=== PATIENT | female | born 1995 | race Caucasian/White ===

== ENCOUNTER 2022-11-28 11:34 | Emergency (ER) | payer OTHER, SELFPAY ==
--- NOTE | 2022-11-28 11:38 | ED.GENADULT ---
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 pain is cramping and continuous. No exacerbating or relieving factors -- vaginal bleeding. LMP October 30 -- Nausea with 2 episodes of vomiting. No diarrhea. no fever or chills. patient has never been before. No history of abdominal surgeries Onset (ago): hour(s) ( Started early today) Location: abdomen Radiation: non-radiation Severity: severe Quality: aching Pain Consistency: constant Relieving factors: none Exacerbating factors: none Associated symptoms: denies other symptoms Treatments prior to arrival: none Related Data Allergies Allergy/AdvReac Type Severity Reaction Status Date / Time Penicillins Allergy Difficulty Verified 07/25/21 08:48 Breathing Review of Systems Review of Systems: All systems reviewed & are unremarkable except as noted in HPI and below Constitutional: Constitutional: Reports as per HPI and Reports no additional constitutional complaints Eyes: Eyes: Reports as per HPI and Reports no additional eye complaints ENT: Reports system reviewed and no additional complaints, except as documented and Reports as per HPI Cardiovascular: Cardiovascular: Reports as per HPI and Reports no additional cardiovascular complaints Respiratory: Respiratory: Reports as per HPI and Reports no additional respiratory complaints Gastrointestinal: Gastrointestinal: Reports as per HPI, Reports no additional gastrointestinal complaints, Reports abdominal pain, Reports nausea and Reports vomiting Genitourinary: Genitourinary: Reports no additional female genitourinary complaints Musculoskeletal: Musculoskeletal: Reports no additional musculoskeletal complaints and Reports as per HPI Integumentary/Breasts: Skin/Breast: Reports system reviewed and no additional complaints, except as docu and Reports as per HPI Neurologic: Reports system reviewed and no additional complaints, except as documented and Reports as per HPI Psychiatric: Psychiatric: Reports no additional psychiatric complaints and Reports as per HPI Endocrine: Endocrine: Reports no additional endocrine complaints and Reports as per HPI Hematologic/Lymphatic: Hematologic/Lymphatic: Reports no additional hematologic/lymphatic complaints and Reports as per HPI Allergic/Immunologic: Allergic/Immunologic: Reports no additional allergic/immunologic complaints and Reports as per HPI Exam Const: General: healthy appearing Nutritional Appearance: well nourished Orientation/consciousness: patient oriented x3 Limitations: no limitations HENMT: Head: normal to inspection Ears: external ears normal Face/Nose/Sinus: Normal external nose present Face and sinus: normal facial exam Mouth: Yes Normal oral and palatal mucosa present Throat: posterior oropharynx normal Eyes: Conjunctivae: conjunctivae normal Pupils: Equal, round and reactive pupils present ( left pupil is dilated. Decreased vision) EOM: EOMs intact bilaterally Direct Ophthalmoscopy: no photophobia Neck: Neck: normal visual inspection, no lymphadenopathy and no meningeal signs Chest: Chest palpation & inspection: normal inspection of the chest Resp: Effort & Inspection: normal respiratory effort Auscultation: clear to auscultation bilaterally Cardio: Rate: regular rate Rhythm: regular rhythm GI: GI Palp: Yes Soft to palpation Auscultation: normal bowel sounds Other: no tenderness/ rigidity / rebound. : General: Yes no CVA tenderness Other: Patient is currently on herperiod Back/Spine/Pelvis: Back: no CVA tenderness Skin: General skin exam: normal color Rashes: no rashes Woun
[2022-11-28 12:14] VITALS: BP 133/95; PULSE 92; RESP 20; TEMP 37; O2SAT 99
[2022-11-28 12:46] LABS: Basophils Absolute Auto 0.02 K/mm3 (0.00-0.10); Basophils Percent Auto 0.2 % (0.0-1.0); Eosinophils Absolute Auto 0.06 K/mm3 (0.02-0.50); Eosinophils Percent Auto 0.7 % (1.0-6.0); Hematocrit 40.4 % (35.0-49.0); Hemoglobin 13.4 g/dL (12.0-15.0); Immature Granulocyte Absolute 0.05 K/mm3 (0.00-0.00); Immature Granulocyte Percent A 0.6 % (0.0-0.0); Lymphocytes Absolute Auto 0.89 K/mm3 (1.10-4.50); Mean Corpuscular HGB Conc 33.2 g/dL (32.0-36.0); Mean Corpuscular Volume 90.6 fL (78.0-102.0); Mean Platelet Volume 10.1 fl (9.2-11.8); Monocytes Absolute Auto 0.36 K/mm3 (0.10-0.90); Neutrophils Absolute Auto 7.5 K/mm3 (1.7-7.2); Neutrophils Percent Auto 84.5 % (50.0-70.0); Platelet Count Result 216 K/mm3 (150-420); Red Blood Count 4.46 M/mm3 (4.20-5.40); Red Cell Distribution Width 11.7 % (11.6-14.4); White Blood Count 8.9 K/mm3 (4.8-10.8)
[2022-11-28 12:57] LABS: Alanine Aminotransferase 18 U/L (14-59); Albumin Level 4.1 g/dL (3.4-5.0); Alkaline Phosphatase 65 U/L (46-116); Anion Gap 9 mmol/L (8-16); Aspartate Amino Transferase 15 U/L (15-37); Bilirubin,Total 0.6 mg/dL (0.00-1.00); Blood Urea Nitrogen 11 mg/dL (7-18); Calcium 8.5 mg/dL (8.5-10.1); Carbon Dioxide 26 mmol/L (21-32); Chloride 105 mmol/L (98-108); Estimated CRCL calculation 91 ml/min; Estimated Glomerular Filt Rate > 60; Glucose 103 mg/dL (70-99); Lipase 21 U/L (16-77); Osmolality Calculated 289 mOsm/kg (285-295); Potassium 3.6 mmol/L (3.5-5.1); Sodium 140 mmol/L (136-145); Total Protein 7.8 g/dL (6.4-8.2)
[2022-11-28 13:01] LABS: SPREG INTERNAL CONTROL Positive; Serum Qual hCG Negative
[2022-11-28 13:02] LABS: Lactic Acid Reflex 0.9 mmol/L (0.4-2.0)
[2022-11-28 13:22] LABS: Appearance Urine Clear (Clear); Bilirubin Urine Negative (Negative); Blood Urine 3+ (Negative); Color Urine Yellow (Yellow); Glucose Urine UA Negative (Negative); Ketones Urine Negative (Negative); Leukocyte Esterase Ur Negative LEU/UL (Negative); Nitrate Urine Negative (Negative); Protein Urine Negative (Negative); Specific Grav Ur >= 1.030 (1.010-1.020); Urobilinogen Urine 0.2 mg/dL (0.2-1.0)
[2022-11-28 13:26] LABS: Add Urine Microscopic? YES; RBC Urine 21-50 /hpf (0-2); Squamous Epithelial Cell Urine Rare /hpf (Few); WBC Urine None seen /hpf (0-3)
[2022-11-28 13:27] LABS: Bacteria Urine 1+ /hpf; Mucus Urine Few /lpf
[2022-11-28 13:41] VITALS: BP 134/80; PULSE 80; RESP 20; TEMP 36.1; O2SAT 99
== END 2022-11-28 13:41 | disposition home or self-care (01) ==
PROVIDERS: Emergency Provider Internal Medicine Critical Care Medicine; PCP Family Medicine
DX: R10.31 Right lower quadrant pain (principal)
CPT/HCPCS: 36415; 80053; 81001; 83605; 83690; 84703; 85025; 99283

== ENCOUNTER 2024-07-19 09:38 | Outpatient (RCR) | payer OTHER, SELFPAY ==
[2024-07-20] MEDS: RHO(D) IMMUNE GLOBULIN 300 MCG/2 ML SYRINGE IM (11:24)
== END 2024-10-17 23:59 | disposition home or self-care (01) ==
LOC: ANHLAB 09:38
PROVIDERS: PCP Family Medicine; Visit Provider Obstetrics & Gynecology
DX: Z29.13 Encounter for prophylactic Rho(D) immune globulin (principal); O36.0190 Maternal care for anti-D [Rh] antibodies, unspecified trimester, not applicable or unspecified; Z3A.00 Weeks of gestation of pregnancy not specified
CPT/HCPCS: 36415; 85461; 86850; 86900; 86901; 90384; 96372; J2790

== ENCOUNTER 2024-09-04 11:20 | Observation (INO) | payer OTHER, SELFPAY ==
[2024-09-04] VITALS (7 sets, daily range): BP systolic 107–119; BP diastolic 61–75; PULSE 106–118; BMI 27.8
--- NOTE | 2024-09-04 11:46 | OBADM ---
This patient, Bry Stewart, admitted to the OB room OB Post 112 for observation. Patient/family oriented to hospital policies and general routines including ID bracelet, bed and alarms, visiting hours, pain management, procedures, bathroom and other care routines, personal items, smoking policy, room service/diet, and visiting hours. Patient/Family are encouraged to report perceived risks to care and to ask questions if they do not understand what they are told or what they should do.
[2024-09-04 12:27] LABS: Add Urine Microscopic? YES; Appearance Urine Cloudy (Clear); Bacteria Urine 4+ /hpf; Bilirubin Urine Negative (Negative); Blood Urine Negative (Negative); Color Urine Yellow (Yellow); Glucose Urine UA Trace mg/dL (Negative); Ketones Urine Negative (Negative); Leukocyte Esterase Ur Trace LEU/UL (Negative); Need Manual Microscopic Reviewed; Nitrate Urine Negative (Negative); Non Pathogenic Casts 0-2; Protein Urine Negative (Negative); Specific Grav Ur 1.012 (1.001-1.035); Squamous Epithelial Cell Urine Few /hpf (Few); Urobilinogen Urine 0.2 mg/dL (<2.0); WBC Urine 21-50 /hpf (0-3)
--- OUTSIDE RECORDS SUMMARY | 2024-09-04 13:21 | XMS_ITS | Data Portability ---
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 Patient will come back in a year unless there are new symptoms. [email or web address] Not available 12/10/2022 11:35:56 Plan of Treatment Reminders Order Date Submit Date Provider Last Modified By Organization Details Last Modified Time Details Appointments None record ed. Lab None record ed. Referral None record ed. Procedures None record ed. Surgeries None record ed. Imaging None record ed. Medication Orders None record ed. Patient TargetsNo targets recorded. Patient InstructionsNo instructions recorded. Reason for Referral None Reported. Results Created Date Observation Date Name Description Value Unit Range Abnormal Flag Note LastModifiedBy Organization Detail LastModifiedTime 12/11/19 23 12/10/2022 IMAGE GUIDE D PAP, REFLE X HPV IF ASCUS ONLY image guided Pap, reflex HPV ASCUS only SEE RESULT S BELOW CASE REPOR T: Cytol ogy Gynec ologi maurice Repor t Case: [id number] Autho francine g Provi lopez: Gianna Aaron, TERRELL Colle cted: 12/10 1206 Order ing Locat ion: [place] Patho log[facility] Recei nikolay: 12/11 0750 First Scree n: DeLuc a, Leidy, CT Speci men: Scree latha Pap - Image d, Cervi x STATE MENT OF ADEQU ACY: Satis facto ry for evalu ation Trans forma tion zone compo nent prese nt FINAL DIAGN OSIS: Negat raina for Intra epith elial Lesio n or [place] sheets (NIL) . Elect ya jesus d by Leidy Reed CT on 023 at 1:13 PM ----- ----- ----- ----- ----- ----- ----- ----- ----- ----- ----- ----- ----- ----- ----- ----- ----- ---- COMME NT: This speci men was revie wed by a Cytot echno logis t and/o r Patho logis t (as indic ated in this repor t) after evalu ation using the Thinp rep Imagi ng Syste m. CLINI MAURICE INFOR MATIO N: Menst rual Statu s: LMP (if appli cable ): Clini maurice Histo ry/Pr eviou s Pap: Type of Neopl joey (if appli cable ): Signi fican t Clini maurice Findi ngs: Other Histo ry: Hormo randy (if appli cable ): PAP EDUCA IRAIS L NOTE: The Pap Test is a scree latha test with an inher ent false negat raina rate. Liqui d-bas ed sampl ing may decre ase, but will not elimi lai, false negat raina resul ts. A negat raina resul t does not precl ude the prese nce and/o r devel opmen t of disea se, since the prese nce of abnor mal cells in the sampl e depen ds on the locat ion of the lesio n and sampl ing techn ique. Lyndsay nued regul ar scree latha is the best metho d of cance r preve ntion . If repor tom cytol ogic findi ng do not corre late with physi maurice and/o r histo rical findi ngs, furth er inves tigat ion is recom patricio d, as rajni sequeira nted. Not Available [facility] (Lab) [address], [place], [address], 12/15/2022 14:17:50 12/11/19 23 12/10/2022 CT/GC (LIZY) , THINP REP VIAL chlamydia trachomatis, PCR Negati ve negati ve Not Available [facility] (Lab) [address], [place], [address], 12/15/2022 14:17:51 12/11/19 23 12/10/2022 CT/GC (LIZY) , THINP REP VIAL neisseria gonorrhoeae, PCR Negati ve negati ve Not Available [facility] (Lab) [address], [place], [address], 12/15/2022 14:17:51 12/11/19 23 12/10/2022 TRICH OMONA S VAGIN KURTIS (RRNA ) trichomonas vaginalis ribosomal RNA (rrna) Negati ve negati ve Not Available [facility] (Lab) [address], [place], [address], 12/15/2022 14:17:51 Result Notes None recorded. Procedures Surgical History Date Name Laterality Status Provider Name and Address Organization Details Recorded Time Date of Last Pap Smear completed Laura Rick [facility] 12/10/2022 11:36:33 Other completed Laurafadi Rick [facility] 12/10/2022 11:36:43 Imaging Results None recorded. Procedure Notes None recorded. Medical Equipment None Reported. Allergies Allergen ID Allergen Name Allergen Category Reaction Reaction Severity Criticality Documentation Date Start Date Code Code System Note Provider Name and Address Organization Details Recorded Time Penicilli n Not available anaphylax is severe Not available 12/10/2022 58585 [facility]Norm [facility] 11:36:23 Medications Name Sig Start Date Stop Date Status Note LastModified by Organization Details LastModified Time clindamycin HCl 300 mg capsule 2022 completed Not Available Not Available Not Available hydrocodone 5 mg-acetaminop hen 325 mg tablet 2022 completed Not Available Not Available Not Available Durezol 0.05 % eye drops active Not Available Not Available Not Available Vitals Date Recorded Body height Body mass index (BMI) Body weight Systolic blood pressure Diastolic blood pressure Provider Name and Address Organization Details Last Updated DateTime 12/10/2022 160.02 cm 21.6 kg/m2 68731.27 g 119 mm[Hg] 75 mm[Hg] Laura Rikc [facility] 11:36:19 Social History Question Answer Notes LastModified by Organizat ion Details LastModified Time Tobacco Smoking Status Never Smoker Laura Rick [facility], [facility] 12/10/2022 11:37:45 What Is Your Level Of Alcohol Consumption? Occasional Information not available 12/10/2022 Are You Blind Or Do You Have Difficulty Seeing? Yes Information not available 12/10/2022 What Is Your Level Of Caffeine Consumption? Moderate Information not available 12/10/2022 In The 14 Days Before Symptom Onset, Have You Had Close Contact With A Laboratory-confir med COVID-19 While That Case Was Ill? No Information not available 12/10/2022 In The 14 Days Before Symptom Onset, Have You Had Close Contact With A Person Who Is Under Investigation For COVID-19 While That Person Was Ill? No Information not available 12/10/2022 Have You Been To An Area Known To Be High Risk For COVID-19? No Information not available 12/10/2022 Are You Deaf Or Do You Have Serious Difficulty Hearing? No Information not available 12/10/2022 What Type Of Diet Are You Following? REGULAR Information not available 12/10/2022 What Is The Highest Grade Or Level Of School You Have Completed Or The Highest Degree You Have Received? 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 Yes Information not available 12/10/2022 Do You Use Protection During Sex? No Information not available 12/10/2022 Do You Use Your Seat Belt Or Car Seat Routinely? Yes Information not available 12/10/2022 Do You Have Smoke And Carbon Monoxide Detectors In Your Home? Yes Information not available 12/10/2022 How Much Tobacco Do You Smoke? No Information not available 12/10/2022 Do You Feel Stressed (tense, Restless, Nervous, Or Anxious, Or Unable To Sleep At Night)? [id number] Information not available 12/10/2022 Do You Use Any Illicit Or Recreational Drugs? No Information not available 12/10/2022 Do You Use Sunscreen Routinely? Yes Information not available 12/10/2022 Have You Used IV Drugs? No Information not available 12/10/2022 Sex: Unknown Functional Status Question Answer Note LastModified by Organizat ion Details LastModified Time Do you have difficulty walking or climbing stairs? No Information not available 12/10/2022 Are you able to walk? YESWOREST Information not available 12/10/2022 Are you able to care for yourself? Yes Information not available 12/10/2022 Do you have difficulty dressing or bathing? No Information not available 12/10/2022 What is your exercise level? Moderate Information not available 12/10/2022 Mental Status None recorded. Family History Relationship Description Onset Age of this Age Resolved Age Notes LastModified by Organization Details LastModified Time Paternal Grandmother Hypertensive disorder [email or web address] Not available 07/2022 11:36:26 Maternal Grandmother Hypertensive disorder vschroedter Not available 07/2022 11:36:26 Maternal Grandmother High risk vschroedter Not available 07/2022 11:36:26 Maternal Grandmother Diabetes mellitus vschroedter Not available 07/2022 11:36:26 Maternal Grandfather Cerebrovascu lar accident vschroedter Not available 0 12/10/2022 11:36:26 Maternal Grandfather Hypertensive disorder vschroedter Not available 07/2022 11:36:26 Maternal Grandfather Diabetes mellitus vschroedter Not available 07/2022 11:36:26 Maternal Grandfather Kidney disease vschroedter Not available 07/2022 11:36:26 Father Myocardial infarction vschroedter Not available 07/2022 11:36:26 Father Substance abuse vschroedter Not available 07/2022 11:36:26 Medical History Condition Response Allergies (Food, seasonal, environmental ) N Other N Breast Cancer N Drug/Latex Allergies/Reactions N Blood Transfusion N Dermatologic Disorders N Lung Disease N Defects or Inherited Disease N Breast Problem N Gestational Diabetes N Hematologic disorders N Anesthesia Complications N History of STI N Deep Vein Thrombosis N Polycystic ovary syndrome N Anxiety Disorder N Autoimmune disease N Arthritis N Infertility N Polyps N Acid Reflux (GERD) N History of abnormal pap N Cancer N Stroke N Varicosities N Neurologic/Epilepsy N Endometriosis N High Cholesterol N Headaches N Fibromyalgia N Kidney Disease N Heart Problems N Kidney or Bladder Problems N Thyroid Problems N GI Problems N Eating Disorder N Anemia N Art (IVF or FET) N Psychiatric Illness N Ovarian Cancer N Diabetes N Pulmonary (TB, Asthma) N Hepatitis/Liver Disease N No Past Medical History N Eczema N Urinary Tract Infection N Abuse/Domestic Violence N Asthma N Trauma/Violence N Depression/ depression N Heart Disease N Pre-Eclampsia N Hypertension N Osteoporosis N Thrombophilias N Gynecological History Statement/Question Response Abnormal Pap N Flow Heavy Date of LMP 11/25/2022 On BCP's at Conception? N N Was last menstrual period normal N STIs/STDs Y HPV Vaccine N Duration of Flow (days) 6 Current Control Method None Are cycles usually normal Y Frequency of Cycle (Q days) 7 Sexually Active? Y Menses Monthly Y Age of first menstrual cycle 13 Date of Last Pap Smear 11/25/2016 Sexual Problems? N LMP Approximate N Obstetrics History GPAL:G 0 P 0 0 0 0 Past Encounters Encounter ID Performer Location Encounter Start Date Encounter Closed Date Diagnosis/Indication Diagnosis SNOMED-CT Code Diagnosis ICD10 Code Diagnosis Note [id number] ELBA Reyes [place] [address] [address] 12/10/2022 11:25:20 12/10/2022 12:46:42 Gynecologic examination 09315907 Z01.419 Take Calcium with Vitamin D 1200mg daily if not receiving in daily diet. It is strongly advised to have an annual flu shot and up can obtain at most pharmacies . If you have not had a TDap shot in the last 10 years you should obtain one as well. Discussed with patient & provided with informatio n regarding Gardisil vaccine to prevent the 4 strains for HPV that cause cervical cancer if under age 26. Encourage safe sexual practices, to use condoms and limit partners if not already in a monogamous relationsh ip. Do monthly self breast exams. Have mammogram yearly or every other year depending on family history. BRCA testing is now available for patients with strong genetic history of female cancer. If interested contact the office. Engage in daily exercise of low impact aerobic exercise 45-60 minutes 4-5 times weekly. Avoid tobacco and illicit drugs as well as using moderation with alcohol intake less than 1-2 8 oz beverages daily. This lifestyle behavior pattern will lead to less health conditions and longer life span. If BMI greater than 25 weight watchers or dietary consult advised. Patient received above instructio ns, and questions have been answered. If you have any questions please call or respond to this email. Patient was made aware of the patient portal and may obtain a paper copy of today's plan if desired. Tan martell TTC after [place] vacation in April. Discussed timed IC, encouraged daily PNVno hx of abnormal papslast pap 2017 - normalpap done todaySTI testing added to papBlood STI panel declinedFa m hx discussedR TC in 1 year or sooner if needed Health Concerns Section Related Observation LastModified by Organization Detai ls LastModified Time None Recorded Concern Status LastModified by Organization Details LastModified Time None Recorded Advance Directives Directive None Recorded Payers Encounter Date Sequence Insurance Name Policy Number Policy Paez Covered Member ID Paez Member ID Guarantor Name 12/10/2022 1 [employer] [id number] Bry Stewart [id number] Bry Stewart Notes Date Note Type Note Provider Name and Address Organization Details Recorded Time 12/10/2022 text/html Annual GYNReport ed bypatient.Menstrua l cycle:Normal menses Urinary symptoms:No hematuria; No incontinence Vulva:No genital lesion Vagina:Normal vaginal discharge Breast:No breast pain; No breast lump; No nipple discharge Current Contraception:Cond oms Sexual complaints:No sexual complaints; No pain during intercourse; Normal libido Menopausal Symptoms:No menopausal symptoms; Normal vaginal lubrication Psychological symptoms:No depression; No anxiety; No PMDD Preventive measures:Encourage self breast examination; Encourage regular exercise; Encourage no tobacco use; Encourage regular mammograms starting age 40 ELBA Reyes [address], [place], [address], [facility] 12/10/2022 12:38:55 OBGyn Episode No OBEpisode recorded.
--- NOTE | 2024-09-05 07:57 | PM.OBTRLD ---
OB - Triage/Final Diagnosis Visit Information Date of evaluation: 09/04/24 Comments/Additional reasons for admission: I have assessed the risk for this patient, Bry Stewart, and determined that she would benefit from observation care. Evaluation Laboratory results: Laboratory Tests 09/04/24 12:04 Urine Color Yellow Urine Appearance Cloudy H Urine pH 7.0 Ur Specific [place] 1.012 Urine Protein Negative Urine Glucose (UA) Trace H Urine Ketones Negative Ur Blood (Man) Negative Urine Nitrate Negative Urine Bilirubin Negative Urine Urobilinogen 0.2 Ur Leukocyte Esterase Trace H Add Ur Microanalysis Reviewed Urine RBC 3-5 H Urine WBC 21-50 H Ur Squamous Epith Cells Few Urine Bacteria 4+ H Urine Casts 0-2 Vital signs: Vital Signs - 24 hr 09/04/24 11:39 09/04/24 11:45 09/04/24 11:46 Pulse Rate 118 H 108 H Blood Pressure 119/75 119/71 Oxygen Delivery Room Air 09/04/24 12:01 09/04/24 12:15 09/04/24 12:31 Pulse Rate 108 H 113 H 108 H Blood Pressure 113/69 114/65 108/68 Oxygen Delivery 09/04/24 12:46 09/04/24 13:00 Pulse Rate 106 H 107 H Blood Pressure 107/61 111/66 Oxygen Delivery
== END 2024-09-04 14:30 | disposition home or self-care (01) ==
LOC: ANHOBPP 11:25
PROVIDERS: Admitting Provider Obstetrics & Gynecology; PCP Family Medicine; Visit Provider Obstetrics & Gynecology
DX: O26.893 Other specified pregnancy related conditions, third trimester (principal); R10.9 Unspecified abdominal pain; Z3A.34 34 weeks gestation of pregnancy
CPT/HCPCS: 81001; 87086; G0378; G0379

== ENCOUNTER 2024-10-11 01:50 | Inpatient (IN) | payer OTHER, SELFPAY ==
[2024-10-11] VITALS (270 sets, daily range): BP systolic 84–137; BP diastolic 36–80; PULSE 31–147; RESP 16; TEMP 36.4–38.3; O2SAT 64–100; BMI 30.6
--- OUTSIDE RECORDS SUMMARY | 2024-10-11 01:59 | XMS_ITS | Data Portability ---
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 Not Available [facility] (Lab) [address], [place], [address], 12/15/2022 14:17:50 12/11/19 23 12/10/2022 CT/GC (LIZY) , THINP REP VIAL chlamydia trachomatis, PCR Negati ve negati ve Not Available [facility] (Lab) [address] [facility], [place], [address], 12/15/2022 14:17:51 12/11/19 23 12/10/2022 CT/GC (LIZY) , THINP REP VIAL neisseria gonorrhoeae, PCR Negati ve negati ve Not Available [facility] (Lab) [address], [place], [address], 12/15/2022 14:17:51 12/11/19 23 12/10/2022 TRICH OMONA S VAGIN KURTIS (RRNA ) trichomonas vaginalis ribosomal RNA (rrna) Negati ve negati ve Not Available [facility] (Lab) [address], [place], [address], 12/15/2022 14:17:51 Result Notes None recorded. Procedures Surgical History Date Name Laterality Status Provider Name and Address Organization Details Recorded Time Date of Last Pap Smear completed Laura Rick [facility] 12/10/2022 11:36:33 Other completed Laurafadi Rick [facility] 12/10/2022 11:36:43 Imaging Results None recorded. Procedure Notes None recorded. Medical Equipment None Reported. Allergies Allergen ID Allergen Name Allergen Category Reaction Reaction Severity Criticality Documentation Date Start Date Code Code System Note Provider Name and Address Organization Details Recorded Time Penicilli n Not available anaphylax is severe Not available 12/10/2022 33832 RxNorm [facility] 11:36:23 Medications Name Sig Start [...] Updated DateTime 12/10/2022 160.02 cm 21.6 kg/m2 74309.27 g 119 mm[Hg] 75 mm[Hg] Laura Rick [facility] 11:36:19 Social History Question Answer Notes LastModified by Organizat ion Details LastModified Time Tobacco Smoking Status Never Smoker Laura Rick [facility], [facility] 12/10/2022 11:37:45 What Is Your Level [...] Or The Highest Degree You Have Received? [id number] Information not available 12/10/2022 What Is Your [...] Anxious, Or Unable To Sleep At Night)? [id number] Information not available 12/10/2022 Do You Use [...] available 07/2022 11:36:26 Medical History Condition Response Other N Blood Transfusion N Dermatologic Disorders N Gestational Diabetes N Anxiety Disorder N Autoimmune disease N Arthritis N Polyps N Infertility N Acid Reflux (GERD) N Cancer N Varicosities N Stroke N Neurologic/Epilepsy N Fibromyalgia N Headaches N Kidney Disease N Heart Problems N Kidney or Bladder Problems N Eating Disorder N Art (IVF or FET) N Hepatitis/Liver Disease N No Past Medical History N Urinary Tract Infection N Asthma N Trauma/Violence N Thrombophilias N Allergies (Food, seasonal, environmental ) N Breast Cancer N Drug/Latex Allergies/Reactions N Lung Disease N Defects or Inherited Disease N Breast Problem N Hematologic disorders N Anesthesia Complications N History of STI N Deep Vein Thrombosis N Polycystic ovary syndrome N History of abnormal pap N Endometriosis N High Cholesterol N Thyroid Problems N GI Problems N Anemia N Psychiatric Illness N Ovarian Cancer N Diabetes N Pulmonary (TB, Asthma) N Eczema N Abuse/Domestic Violence N Depression/ depression N Heart Disease N Pre-Eclampsia N Hypertension N Osteoporosis N Gynecological History Statement/Question Response Abnormal Pap [...] SNOMED-CT Code Diagnosis ICD10 Code Diagnosis Note [id number] ELBA Reyes [place] [address] [address] 12/10/2022 11:25:20 12/10/2022 12:46:42 Gynecologic examination 17910401 Z01.419 Take Calcium with Vitamin D 1200mg [...] plan if desired. Tan martell TTC after [place] vacation in April. Discussed timed IC, encouraged [...] Member ID Guarantor Name 12/10/2022 1 UMR [id number] Bry Stewart [id number] Bry Stewart Notes Date Note Type Note [...] age 40 ELBA Reyes [address], [place], [address], [facility] 12/10/2022 12:38:55 OBGyn Episode No OBEpisode recorded.
--- NOTE | 2024-10-11 02:02 | LDADM ---
This patient, Bry Stewart, was admitted to Labor/Delivery/Recovery 106 on 10/11/24 at 01:50. Plans for labor, pain management and were discussed with patient. Patient/family oriented to hospital policies and general routines including ID bracelet, bed and alarms, visiting hours, pain management, procedures, bathroom and other care routines, personal items, smoking policy, room service/diet and guest tray routines, infant security routines, and visiting hours. Patient/Family are encouraged to report perceived risks to care and to ask questions if they do not understand what they are told or what they should do. See OBIX for further documentation.
[2024-10-11 02:17] LABS: Basophils Absolute Auto 0.1 K/mm3 (0.0-0.1); Basophils Percent Auto 0.4 % (0.2-1.2); Eosinophils Absolute Auto 0.2 K/mm3 (0-0.3); Eosinophils Percent Auto 1.2 % (0-4.4); Hematocrit 33.2 % (37.0-47.0); Immature Granulocyte Absolute 0.12 K/mm3 (0.00-0.031); Lymphocytes Absolute Auto 2.48 K/mm3 (0.9-3.2); Lymphocytes Percent Auto 19.7 % (18.3-44.2); Mean Corpuscular HGB Conc 33.1 g/dl (32-36); Mean Corpuscular Hemoglobin 27.8 pg (26-34); Mean Corpuscular Volume 83.8 fl (80-100); Mean Platelet Volume 10.2 fl (7.4-10.4); Monocytes Absolute Auto 1.1 K/mm3 (0.1-0.6); Monocytes Percent Auto 8.4 % (2.6-8.5); Neutrophils Absolute Auto 8.7 K/mm3 (1.3-6.7); Neutrophils Percent Auto 69.3 % (45.5-73.1); Platelet Count Result 260 k/mm3 (150-375); Red Blood Count 3.96 M/mm3 (4.2-5.4); Red Cell Distribution Width 13.4 % (11.5-14.5); White Blood Count 12.6 K/mm3 (4.5-10.0)
[2024-10-11 03:19] LABS: HIV 1/2 Ab P24 Ag Result Negative (Negative)
[2024-10-11 03:24] LABS: Syphilis IgG/IgM Antibody Negative (Negative)
[2024-10-11] MEDS: OXYTOCIN 30 UNITS/NS 500 ML 30 UNITS/500 ML BAG IV CONT (03:37)
[2024-10-11] MEDS: LACTATED RINGERS 1,000 ML 125 ML IV CONT ×4 (03:38→18:23)
--- NOTE | 2024-10-11 05:49 | P.PNAN_ITS ---
Anes - Eval Pre Procedure Procedure: labor pain management Date/Time: 10/11/24 05:49 Surgeon: Ayse Hinojosa Preop Diagnosis: pain during labor Pre Op Diagnosis: Leaking Patient Data Age: 29 Gender: F Height: 1.57 m Weight: 76 kg Last Vital Signs Pulse 87 10/11/24 05:45 BP 106/65 10/11/24 05:45 Pulse Ox 92 10/11/24 05:48 O2 Del Method Room Air 10/11/24 02:02 Allergies Allergy/AdvReac Type Severity Reaction Status Date / Time Penicillins Allergy Difficulty Verified 10/11/24 02:54 Breathing Home Medications ?Medication ?Instructions ?Recorded ?Confirmed ?Type escitalopram oxalate 10 mg tablet 10 mg PO DAILY 09/30/24 09/30/24 History (Lexapro) vit no.95-ferrous 1 tablet PO DAILY 09/30/24 09/30/24 History fumarate 28 mg-folic acid 800 mcg tablet ( Formula) Laboratory Tests 10/11/24 02:09 WBC 12.6 H K/mm3 (4.5-10.0) RBC 3.96 L M/mm3 (4.2-5.4) Hgb 11.0 L g/dL (12.0-15.0) Hct 33.2 L % (37.0-47.0) MCV 83.8 fl (80-100) MCH 27.8 pg (26-34) MCHC 33.1 g/dl (32-36) RDW 13.4 % (11.5-14.5) Plt Count 260 k/mm3 (150-375) MPV 10.2 fl (7.4-10.4) Immature Gran % (Auto) 1.0 H % (0-0.5) Neut % (Auto) 69.3 % (45.5-73.1) Lymph % (Auto) 19.7 % (18.3-44.2) [place] % (Auto) 8.4 % (2.6-8.5) Eos % (Auto) 1.2 % (0-4.4) Baso % (Auto) 0.4 % (0.2-1.2) Lymph # (Auto) 2.48 K/mm3 (0.9-3.2) [place] # (Auto) 1.1 H K/mm3 (0.1-0.6) Eos # (Auto) 0.2 K/mm3 (0-0.3) Baso # (Auto) 0.1 K/mm3 (0.0-0.1) Abs Immat Gran (auto) 0.12 H K/mm3 (0.00-0.031) Absolute Neuts (auto) 8.7 H K/mm3 (1.3-6.7) Absolute Nucleated RBC 0.000 K/mm3 (0.0-0.012) Nucleated RBC % 0.0 % (0.0-0.2) Syphilis IgG/IgM Ab Negative (Negative) HIV 1&2 Ab/P24 Ag 4thGn Negative (Negative) Blood Type O Negative Antibody Screen Negative Patient hx anesthesia problems: none Family hx anesthesia problems: none Results Review: All pre-operative results and documents have been reviewed as part of the pre- operative evaluation. [facility] Social History Social History Smoking status: Never smoker Substance use: never Do You Feel Safe in your Home?: Yes Lack of Transportation: No Lack of Food: Never True Current Housing: I Have Housing Concerned About Future Housing: No Difficulty Paying Gas/Electric Bills: No Difficulty Paying for Meds: No Currently Unemployed: No Education: Bachelor's Degree Difficulty w/ Childcare or Family Care: No Spiritual care concerns: No Exam Day of Procedure 10/11/24 05:49
--- NOTE | 2024-10-11 06:26 | PM.IMHP ---
H&P: HPI History of Present Illness Date/Time: 10/11/24 06:26 Chief Complaint: Rupture membranes at term Narrative: 29-year-old 1 para 0 whose last menstrual period was 624, EDC is 10/14/2024, presents at 39 and half weeks gestation in active labor she is negative for group B strep her has been uncomplicated Review of Systems Review of Systems: All systems reviewed & are unremarkable except as noted in HPI and below Constitutional: Constitutional: Reports as per HPI and Reports no additional constitutional complaints Eyes: Eyes: Reports as per HPI and Reports no additional eye complaints ENT: Reports system reviewed and no additional complaints, except as documented and Reports as per HPI Cardiovascular: Cardiovascular: Reports as per HPI and Reports no additional cardiovascular complaints Respiratory: Respiratory: Reports as per HPI and Reports no additional respiratory complaints Gastrointestinal: Gastrointestinal: Reports as per HPI, Reports no additional gastrointestinal complaints, Reports abdominal pain, Reports nausea and Reports vomiting Genitourinary: Genitourinary: Reports no additional female genitourinary complaints Musculoskeletal: Musculoskeletal: Reports no additional musculoskeletal complaints and Reports as per HPI Integumentary/Breasts: Skin/Breast: Reports system reviewed and no additional complaints, except as docu and Reports as per HPI Neurologic: Reports system reviewed and no additional complaints, except as documented and Reports as per HPI Psychiatric: Psychiatric: Reports no additional psychiatric complaints and Reports as per HPI Endocrine: Endocrine: Reports no additional endocrine complaints and Reports as per HPI Hematologic/Lymphatic: Hematologic/Lymphatic: Reports no additional hematologic/lymphatic complaints and Reports as per HPI Allergic/Immunologic: Allergic/Immunologic: Reports no additional allergic/immunologic complaints and Reports as per HPI [facility] Social History Social History Smoking status: Never smoker Substance use: never Do You Feel Safe in your Home?: Yes Lack of Transportation: No Lack of Food: Never True Current Housing: I Have Housing Concerned About Future Housing: No Difficulty Paying Gas/Electric Bills: No Difficulty Paying for Meds: No Currently Unemployed: No Education: Bachelor's Degree Difficulty w/ Childcare or Family Care: No Spiritual care concerns: No Meds Home Medications and Allergies Home Medications ?Medication ?Instructions ?Recorded ?Confirmed ?Type escitalopram oxalate 10 mg tablet 10 mg PO DAILY 09/30/24 09/30/24 History (Lexapro) vit no.95-ferrous 1 tablet PO DAILY 09/30/24 09/30/24 History fumarate 28 mg-folic acid 800 mcg tablet ( Formula) Allergies Allergy/AdvReac Type Severity Reaction Status Date / Time Penicillins Allergy Difficulty Verified 10/11/24 02:54 Breathing Vital Signs Vital Signs - 24 hr 10/11/24 02:02 10/11/24 02:21 10/11/24 02:30 Pulse Rate 95 97 Blood Pressure 107/72 108/69 Pulse Oximetry Oxygen Delivery Room Air 10/11/24 02:45 10/11/24 03:00 10/11/24 03:15 Pulse Rate 96 97 92 Blood Pressure 110/71 111/65 113/68 Pulse Oximetry Oxygen Delivery 10/11/24 03:30 10/11/24 03:45 10/11/24 04:00 Pulse Rate 96 91 84 Blood Pressure 108/68 106/65 108/71 Pulse Oximetry Oxygen Delivery 10/11/24 04:15 10/11/24 04:30 10/11/24 04:45 Pulse Rate 82 99 91 Blood Pressure 119/73 113/75 104/70 Pulse Oximetry Oxygen Delivery 10/11/24 05:00 10/11/24 05:42 10/11/24 05:45 Pulse Rate 93 86 87 Blood Pressure 115/66 100/68 106/65 Pulse Oximetry Oxygen Delivery 10/11/24 05:48 10/11/24 05:53 10/11/24 05:56 Pulse Rate 103 H 101 H Blood Pressure 107/66 84/56 L Pulse Oximetry 92 96 Oxygen Delivery 10/11/24 05:57 10/11/24 05:58 10/11/24 06:00 Pulse Rate 104 H 110 H Blood Pressure 113/73 116/79 Pulse Oximetry 97 Oxygen Delivery 10/11/24 06:02 10/11/24 06:03 10/11/24 06:03 Pulse Rate 93 Blood Pressure 122/68 Pulse Oximetry 89 L 96 Oxygen Delivery 10/11/24 06:05 10/11/24 06:07 10/11/24 06:08 Pulse Rate 101 H 90 Blood Pressure 113/68 113/64 Pulse Oximetry 97 Oxygen Delivery 10/11/24 06:10 10/11/24 06:12 10/11/24 06:13 Pulse Rate 106 H 98 Blood Pressure 111/70 117/70 Pulse Oximetry 97 Oxygen Delivery 10/11/24 06:15 10/11/24 06:17 10/11/24 06:18 Pulse Rate 103 H 99 Blood Pressure 111/69 121/76 Pulse Oximetry 98 Oxygen Delivery 10/11/24 06:20 10/11/24 06:23 10/11/24 06:25 Pulse Rate 102 H 99 95 Blood Pressure 90/74 L 125/80 120/69 Pulse Oximetry 98 Oxygen Delivery Exam Const: General: cooperative, healthy appearing and comfortable Nutritional Appearance: average body habitus Orientation/consciousness: oriented to person, oriented to place and oriented to time HENMT: Head: normal to inspection Resp: Effort & Inspection: normal respiratory effort Cardio: Rate: regular rate Rhythm: regular rhythm Heart sounds: S1 normal heart sound present and S2 normal heart sound present GI: Inspection: normal to inspection (Gravid soft uterus) : External Female Exam: normal external appearance Speculum Exam - Vagina: normal appearance of the vagina Speculum Exam - Cervix: normal appearance of the cervix (Cervix 1 with clear fluid heart tones reassuring) H&P: Results Labs Labs: Short CBC 10/11/24 Range/Units 02:09 WBC 12.6 H (4.5-10.0) K/mm3 Hgb 11.0 L (12.0-15.0) g/dL Hct 33.2 L (37.0-47.0) % Plt Count 260 (150-375) k/mm3 Assessment and Plan Assessment and plan (1) : Code(s): Z34.90 - Encounter for supervision of normal , unspecified, unspecified trimester Status: Acute Plan Epidural being placed. Spontaneous vaginal delivery is expected
--- NOTE | 2024-10-11 11:03 | PM.OBPNLAB ---
Pain Control Date/time seen: 10/11/24 11:03 Pain control: tolerating well and epidural Pelvic Exam Dilation (cm): 5 Effacement (%): 80 station: -2 Amniotic membrane status: Leaking
[2024-10-11] MEDS: ACETAMINOPHEN 500 MG TABLET 1000 MG PO (15:10)
[2024-10-11] MEDS: ceFAZolin 2 GM/D5W 50 ML 2 GM/50 ML BAG IVPB (15:11)
--- NOTE | 2024-10-11 15:24 | PM.OBPNLAB ---
Pain Control Date/time seen: 10/11/24 15:24 Pain control: tolerating well and epidural Pelvic Exam Dilation (cm): 10 Effacement (%): 100 station: -2 Amniotic membrane status: Leaking
--- NOTE | 2024-10-11 18:00 | PM.OBPRVD ---
OB - Vaginal Delivery Note Procedure Delivery date: 10/11/24 Induction method: None Delivery augmentation: Pitocin Delivery monitor: External FHT and Internal Uterine Route of delivery: Episiotomy description: None Laceration Description: Perineal - 1st Degree Delivery repair: vicryl Specimen: No Quantitative Blood Loss (ml): 62 Anesthesia type: Epidural Disposition: Floor Complications: No immediate complications Narrative: Patient was a admitted at 39 weeks gestation with spontaneous rupture membranes Pitocin augmentation was begun as her contractions were irregular. She had epidural anesthesia placed when she was complete she pushed delivered head spontaneously in the FRANCISCA position. Anterior posterior shoulder delivered spontaneously. Cord cut to his cut. Infant placed in on the table with an excellent cry. Placenta delivered intact spontaneously. Twenty of Pitocin placed IV to help firm the uterus. After inspecting the vagina small sulcal tear was seen and a [id number] Vicryl was placed blood loss was estimated 62cc. All sponge, needle, instrument counts were correct. There were no immediate complications Baby Date of : 10/11/24 Time of : 17:50 Gestational Age by Date: 39 gender: Male presentation: vertex position: Left Occiput Anterior Placenta delivery description: Spontaneous Cord Vessel Description: 3 Vessels
--- NOTE | 2024-10-11 18:03 | PM.DS ---
DS: Admitting Diagnosis Discharge Date 10/13/2024 Admitting Diagnosis Term DS: Discharge Diagnosis Discharge Diagnosis (1) : Code(s): Z34.90 - Encounter for supervision of normal , unspecified, unspecified trimester Status: Acute DS: Summary Hospital Course Reason for hospitalization: Patient was admitted on the early a.m. of 10/11/2024. She underwent spontaneous vaginal delivery with epidural anesthesia of a male Hospital Course: Patient's hospital course unremarkable. She remained afebrile. She was up, voiding without difficulty, eating regular diet, ambulating, generally without complaints. Time Spent with Patient Time attestation: Total time spent providing and/or coordinating discharge services: Exam Const: General: cooperative, healthy appearing and comfortable Nutritional Appearance: average body habitus Orientation/consciousness: oriented to person, oriented to place and oriented to time Resp: Effort & Inspection: normal respiratory effort Cardio: Rate: regular rate Rhythm: regular rhythm Heart sounds: S1 normal heart sound present and S2 normal heart sound present GI: Inspection: normal to inspection (Fundus firm below the umbilicus) DS: Data Data Completed and Pending Labs on day of discharge: Labs from last 24 hours 10/11/24 02:09 WBC 12.6 H RBC 3.96 L Hgb 11.0 L Hct 33.2 L MCV 83.8 MCH 27.8 MCHC 33.1 RDW 13.4 Plt Count 260 MPV 10.2 Immature Gran % (Auto) 1.0 H Neut % (Auto) 69.3 Lymph % (Auto) 19.7 [place] % (Auto) 8.4 Eos % (Auto) 1.2 Baso % (Auto) 0.4 Lymph # (Auto) 2.48 [place] # (Auto) 1.1 H Eos # (Auto) 0.2 Baso # (Auto) 0.1 Abs Immat Gran (auto) 0.12 H Absolute Neuts (auto) 8.7 H Absolute Nucleated RBC 0.000 Nucleated RBC % 0.0 Syphilis IgG/IgM Ab Negative HIV 1&2 Ab/P24 Ag 4thGn Negative Blood Type O Negative Antibody Screen Negative Discharge Plan Discharge Attending physician on discharge: Paramjit Vu Discharging Clinician: Paramjit Vu Patient Disposition: Home, Self-Care Activity: may shower, no straining and pelvic rest Diet: heart healthy Wound Care Instructions: follow printed instructions Patient Instructions: Antibiotic Form Patient Language: Portuguese Stand Alone Forms: General Discharge Information Follow-up/Referrals: Paramjit Vu MD [Physician] - Discharge Medications: Continued escitalopram oxalate [Lexapro] 10 mg tablet 10 mg PO DAILY PNV cmb#95-ferrous fumarate-FA [ Formula] 28 mg iron- 800 mcg tablet 1 tablet PO DAILY Date of admission: 10/11/24 01:50 Primary Care Provider: NhanAayush Admitting Provider: Paramjit Vu Attending physician on admission: Paramjit Vu Condition: Stable
[2024-10-11] MEDS: OXYTOCIN 30 UNITS/NS 500 ML 30 UNITS/500 ML BAG 125 UNITS IV CONT (18:23)
[2024-10-11] MEDS: IBUPROFEN 600 MG TABLET PO (19:59)
[2024-10-11] MEDS: WITCH HAZEL 40 PADS 1 PAD TOPICAL (20:32)
[2024-10-11] MEDS: BENZOCAINE 20% AER SPR (*SP) 56 GM CAN 1 SPRAY TOPICAL (20:32)
--- NOTE | 2024-10-11 20:51 | OBPPTRN ---
Patient transferred to post room #281 via wheelchair. Support person present. Oriented to unit, room, information board, rooming in, admission packet and security measures. Patient verbalizes understanding.
[2024-10-12 01:00] VITALS: BP 97/55; PULSE 96; RESP 16; TEMP 36.4; O2SAT 96
[2024-10-12] MEDS: IBUPROFEN 600 MG TABLET PO (01:29)
[2024-10-12 04:18] VITALS: BP 98/62; PULSE 76; RESP 16; TEMP 36.4
[2024-10-12 05:14] LABS: Hemoglobin 9.7 g/dL (12.0-15.0)
--- NOTE | 2024-10-12 05:39 | P.PNOB_ITS ---
OB - PN: Subj Subjective Date/time seen: 10/12/24 05:39 Patient comments: no complaints baby status: doing well OB - PN: Obj Data Labs 10/12/24 04:24 Labs: Laboratory Results - last 24 hr 10/12/24 04:24 Hgb 9.7 L Hct 30.0 L OB - PN A/P Assessment and Plan (1) : Code(s): Z34.90 - Encounter for supervision of normal , unspecified, unspecified trimester Status: Acute Plan Comments: routine care Time Spent With Patient Time: Total time spent is greater than 50% in coordination of care (as documented) at patient's floor/unit and/or counseling patient: Review of Systems 2 Review of Systems: All systems reviewed & are unremarkable except as noted in HPI and below Constitutional: Constitutional: Reports as per HPI and Reports no additional constitutional complaints Eyes: Eyes: Reports as per HPI and Reports no additional eye complaints ENT: Reports system reviewed and no additional complaints, except as documented and Reports as per HPI Cardiovascular: Cardiovascular: Reports as per HPI and Reports no additional cardiovascular complaints Respiratory: Respiratory: Reports as per HPI and Reports no additional respiratory complaints Gastrointestinal: Gastrointestinal: Reports as per HPI, Reports no additional gastrointestinal complaints, Reports abdominal pain, Reports nausea and Reports vomiting Genitourinary: Genitourinary: Reports no additional female genitourinary complaints Musculoskeletal: Musculoskeletal: Reports no additional musculoskeletal complaints and Reports as per HPI Integumentary/Breasts: Skin/Breast: Reports system reviewed and no additional complaints, except as docu and Reports as per HPI Neurologic: Reports system reviewed and no additional complaints, except as documented and Reports as per HPI Psychiatric: Psychiatric: Reports no additional psychiatric complaints and Reports as per HPI Endocrine: Endocrine: Reports no additional endocrine complaints and Reports as per HPI Hematologic/Lymphatic: Hematologic/Lymphatic: Reports no additional hematologic/lymphatic complaints and Reports as per HPI Allergic/Immunologic: Allergic/Immunologic: Reports no additional allergic/immunologic complaints and Reports as per HPI Exam 2 Const: General: cooperative, healthy appearing and comfortable Nutritional Appearance: average body habitus Orientation/consciousness: oriented to person, oriented to place and oriented to time HENMT: Head: normal to inspection Resp: Effort & Inspection: normal respiratory effort Cardio: Rate: regular rate Rhythm: regular rhythm Heart sounds: S1 normal heart sound present and S2 normal heart sound present GI: Inspection: normal to inspection
[2024-10-12] MEDS: MULTIVIT/MIN/PREN/FOL AC/IRON TABLET 1 TAB PO (07:02)
[2024-10-12] MEDS: POLYSACCHARIDE IRON COMPLEX 150 MG CAPSULE PO ×2 (07:03→16:55)
[2024-10-12] MEDS: DOCUSATE SODIUM 100 MG CAPSULE PO ×2 (07:03→16:55)
[2024-10-12 08:00] VITALS: BP 104/68; PULSE 80; RESP 16; TEMP 36.5; O2SAT 96
--- NOTE | 2024-10-12 09:35 | WPDANLDPN2 ---
Anes-Prog Note L&D Date/Time: 10/12/24 09:35 Comfortable throughout: labor and delivery Neuraxial method: epidural Epidural/Spinal procedure site: clean & non-tender Neuro status: Neuro function grossly intact. Cardiovascular status: normal Respiratory status: normal Airway patency: baseline Mental status: baseline Post-Op hydration status: normal Vital Signs: Last Vital Signs Temp 36.5 C 10/12/24 08:00 Pulse 80 10/12/24 08:00 Resp 16 10/12/24 08:00 BP 104/68 10/12/24 08:00 Pulse Ox 96 10/12/24 08:00 O2 Del Method Room Air 10/11/24 21:00 Pain score (VAS): 1 I/O: Intake & Output 10/11/24 10/12/24 10/12/24 23:59 07:59 15:59 Intake Total 1000 Output Total 412 Balance 588 Post-procedural complaints: none Patient feedback: Patient satisfied with anesthetic care.
[2024-10-12 12:47] VITALS: BP 105/56; PULSE 90; RESP 16; TEMP 36.2; O2SAT 97
--- NOTE | 2024-10-12 15:58 | PC.NURSE ---
Mother is using her breast pump from home and wishes to exclusively pump and feed infant. Instructions given on cleaning, care, usage, that there should be no pain, pumping schedule for milk production, collection, and storage of human milk. Patient was assessed for correct placement, flange size, to pump for comfort and nipple stretching/stimulation for adequate milk production every 3 hours (8 times in 24 hours) 1-2 times at night. Parents are encouraged to record the pumping schedule on the feeding sheet.?Mother voiced understanding of the education shared along with mom/baby guide and the pump measurement, flange fit handout for additional resource information. Reported to the Primary RN.
--- NOTE | 2024-10-12 17:30 | PC.NURSE ---
On 10/12/24, the student, [place] [facility], provided care and completed [facility] documentation on this patient. I have reviewed the student's documentation and agree with the findings.
[2024-10-12 20:00] VITALS: BP 118/77; PULSE 91; RESP 16; TEMP 36.7; O2SAT 97
[2024-10-13] MEDS: LANOLIN (LANSINOH) 7.5 GM CREAM 1 APPLIC TOPICAL (05:47)
--- NOTE | 2024-10-13 06:46 | P.PNOB_ITS ---
OB - PN: Subj Subjective Date/time seen: 10/13/24 06:46 Patient comments: no complaints, pain well controlled and tolerating diet [place] baby status: doing well OB - PN: Obj Data Labs 10/12/24 04:24 OB - PN A/P Assessment and Plan (1) : Code(s): Z34.90 - Encounter for supervision of normal , unspecified, unspecified trimester Status: Acute Plan Comments: home Time Spent With Patient Time: Total time spent is greater than 50% in coordination of care (as documented) at patient's floor/unit and/or counseling patient: Review of Systems 2 Review of Systems: All systems reviewed & are unremarkable except as noted in HPI and below Constitutional: Constitutional: Reports as per HPI and Reports no additional constitutional complaints Eyes: Eyes: Reports as per HPI and Reports no additional eye complaints ENT: Reports system reviewed and no additional complaints, except as documented and Reports as per HPI Cardiovascular: Cardiovascular: Reports as per HPI and Reports no additional cardiovascular complaints Respiratory: Respiratory: Reports as per HPI and Reports no additional respiratory complaints Gastrointestinal: Gastrointestinal: Reports as per HPI, Reports no additional gastrointestinal complaints, Reports abdominal pain, Reports nausea and Reports vomiting Genitourinary: Genitourinary: Reports no additional female genitourinary complaints Musculoskeletal: Musculoskeletal: Reports no additional musculoskeletal complaints and Reports as per HPI Integumentary/Breasts: Skin/Breast: Reports system reviewed and no additional complaints, except as docu and Reports as per HPI Neurologic: Reports system reviewed and no additional complaints, except as documented and Reports as per HPI Psychiatric: Psychiatric: Reports no additional psychiatric complaints and Reports as per HPI Endocrine: Endocrine: Reports no additional endocrine complaints and Reports as per HPI Hematologic/Lymphatic: Hematologic/Lymphatic: Reports no additional hematologic/lymphatic complaints and Reports as per HPI Allergic/Immunologic: Allergic/Immunologic: Reports no additional allergic/immunologic complaints and Reports as per HPI Exam 2 Const: General: cooperative, healthy appearing and comfortable Nutritional Appearance: average body habitus Orientation/consciousness: oriented to person, oriented to place and oriented to time HENMT: Head: normal to inspection Resp: Effort & Inspection: normal respiratory effort Cardio: Rate: regular rate Rhythm: regular rhythm Heart sounds: S1 normal heart sound present and S2 normal heart sound present GI: Inspection: normal to inspection
[2024-10-13 07:52] VITALS: BP 103/72; PULSE 82; RESP 14; TEMP 36.7; O2SAT 99
[2024-10-13] MEDS: POLYSACCHARIDE IRON COMPLEX 150 MG CAPSULE PO (07:52)
[2024-10-13] MEDS: IBUPROFEN 600 MG TABLET PO (07:52)
[2024-10-13] MEDS: MULTIVIT/MIN/PREN/FOL AC/IRON TABLET 1 TAB PO (07:52)
[2024-10-13] MEDS: DOCUSATE SODIUM 100 MG CAPSULE PO (07:52)
[2024-10-13] MEDS: WITCH HAZEL 40 PADS 1 PAD TOPICAL (07:52)
--- NOTE | 2024-10-13 10:15 | PC.NURSE ---
Patient viewed the discharge video Mother & Baby Care, The First Two Weeks . Patient was given the opportunity and encouraged to ask questions. Patient verbalized understanding of information shared and has been given the mother/baby guide for home reference.
--- NOTE | 2024-10-13 11:13 | PC.NURSE ---
Checked in with patient to assess needs for additional education. Mother states that she is going to exclusively pump and feed infant. Mother previously fitted for correct flange size and given education regarding pumping. She denies any additional concerns at this time. Communication board updated.
[2024-10-14 13:10] VITALS: BP 120/63; PULSE 75; RESP 16; TEMP 36.6; O2SAT 99
== END 2024-10-13 12:55 | disposition home or self-care (01) | DRG 807 ==
LOC: ANHLDR 18:05 → ANHOB2 22:48
PROVIDERS: Admitting Provider Obstetrics & Gynecology; PCP Family Medicine; Visit Provider Obstetrics & Gynecology
DX: O75.2 Pyrexia during labor, not elsewhere classified (principal); Z37.0 Single live birth; O70.0 First degree perineal laceration during delivery; Z3A.39 39 weeks gestation of pregnancy
CPT/HCPCS: 36415; 85014; 85018; 85025; 86593; 86703; 86850; 86900; 86901; A9270; G0432; J0690; J2590; J2795; J7120